=== PATIENT | male | born 1940 ===

== ENCOUNTER 2023-08-20 12:51 | Inpatient (IN) ==
[2023-08-20] MEDS: Propofol 10 mg/ml 100 ML BTL 1,000 MG/100 ML BTL IV SCH (14:15)
[2023-08-20] MEDS ORDERED: Sulfur Hexaflouride MICROSPHR 25 MG VIAL ONE (14:48)
[2023-08-20 15:02] LABS: ABS Lymphocytes 0.5 10^3/uL (1.0-4.8); ABS Monocytes 1.2 10^3/uL (0.0-1.1); ABS Neutrophils 15.5 10^3/uL (1.5-7.6); Hematocrit 33.9 % (38-53); Mean Corpuscular Hemoglobin 28.9 pg (27-33); Mean Corpuscular Hgb Conc 32.4 g/dL (31-36); Mean Platelet Volume 9.4 fL (7.5-11.2); Platelet Count 202 10^3/uL (150-450); Red Cell Distribution Width 16.8 % (12-17); White Blood Count 17.3 10^3/uL (3.6-10.2)
[2023-08-20] MEDS: Propofol 10 mg/ml 100 ML BTL 1,000 MG/100 ML BTL ONE (15:17)
[2023-08-20 15:23] LABS: ALT 11 U/L (7-52); AST 20 U/L (13-39); Albumin 3.6 g/dL (3.2-5.2); Albumin/Globulin Ratio 1.7 (1-3); Alkaline Phosphatase 71 U/L (35-149); Anion Gap 13 mmol/L (2-16); Blood Urea Nitrogen 16 mg/dL (6-24); CO2 Carbon Dioxide 25 mmol/L (22-32); Calcium 8.7 mg/dL (8.6-10.3); Chloride 103 mmol/L (101-111); Creatinine, Serum 1.11 mg/dL (0.67-1.17); Globulin 2.1 g/dL (2-4); Glucose 201 mg/dL (70-100); Magnesium 1.6 mg/dL (1.9-2.7); Potassium 2.7 mmol/L (3.5-5.0); Sodium 141 mmol/L (135-145); Total Bilirubin 1.5 mg/dL (0.2-1.0); Total Protein 5.7 g/dL (6.4-8.9); eGFR CKD-EPI 66.3 (>60)
[2023-08-20] MEDS: Chlorhexidine MOUTHWASH 0.12% 15 ML UDC SWISH SPIT SCH (15:25)
[2023-08-20] MEDS: Pantoprazole VIAL 40 MG VIAL IV SCH (15:25)
[2023-08-20] MEDS: Enoxaparin 40 MG/0.4 ML SYR SUBCUT SCH (15:25)
[2023-08-20 15:26] LABS: High Sens Troponin Baseline 77 pg/mL (<20)
[2023-08-20] MEDS: KCL 20 MEQ/100 ML IVPREMIX 20 MEQ/100 ML BAG IV SCH (16:05)
[2023-08-20 16:07] LABS: TSH Ultra Thyroid Stim Horm 0.51 mcIU/mL (0.34-5.60)
[2023-08-20 16:11] LABS: Acetaminophen < 15 mcg/mL; Alcohol, S < 13 mg/dL (<13); Salicylate < 2.50 mg/dL (<30)
[2023-08-20 16:23] LABS: Urine Benzodiazepine Screen Presumptive Positive (None Detect); Urine Cannabinoids Screen None Detected (None Detect); Urine Opiates Screen None Detected (None Detect)
[2023-08-20] MEDS ORDERED: Vancomycin 1,000 MG in NS 0.9% 250 ml 250 ML IVPB ONE (16:26)
[2023-08-20 16:35] LABS: High Sensitivity Troponin 1 Hr 98 pg/mL (<20)
[2023-08-20] MEDS ORDERED: Zosyn per Pharmacy NOTE FOLLOW UP SCH (17:00)
[2023-08-20] MEDS ORDERED: Vancomycin per Pharmacy 1 EA NOTE FOLLOW UP SCH (17:00)
[2023-08-20] MEDS: Magnesium Sulf 4 GM/100 ML IV 4,000 MG/100 ML BAG IVPB ONE (18:14)
[2023-08-20] MEDS: Iodixanol (CONTRAST) 320 MG/ML 100 ML SDV IV ONE (18:14)
[2023-08-20] MEDS: Vancomycin 1,500 MG in NS 0.9% 250 ml 250 ML IVPB ONE (18:34)
[2023-08-20] MEDS: Piperacillin/Tazobac 3.375 BAG 3.375 GM/100 ML BAG IV ONE (18:36)
[2023-08-20] MEDS: Iodixanol 320 (CONTRAST) 100 ML SDV IV ONE (18:40)
[2023-08-20 18:48] LABS: Urine Appearance Clear; Urine Bilirubin Negative (Negative); Urine Blood 2+ (Negative); Urine Color Straw; Urine Glucose Negative (Negative); Urine Ketones Negative (Negative); Urine Nitrite Negative (Negative); Urine Protein Negative (Negative); Urine Specific Gravity 1.024 (1.002-1.030); Urine Urobilinogen Negative (Negative)
[2023-08-20 19:10] LABS: Anion Gap 7 mmol/L (2-16); Blood Urea Nitrogen 15 mg/dL (6-24); CO2 Carbon Dioxide 29 mmol/L (22-32); Calcium 8.8 mg/dL (8.6-10.3); Chloride 101 mmol/L (101-111); Creatinine, Serum 1.02 mg/dL (0.67-1.17); Glucose 147 mg/dL (70-100); Sodium 137 mmol/L (135-145); eGFR CKD-EPI 73.4 (>60)
[2023-08-20 19:10] LABS: Urine Bacteria 1+ (Absent); Urine Red Blood Cell 3+(>10/hpf) (Absent); Urine White Blood Cell Absent (Absent)
[2023-08-20] MEDS: ZOSYN 3.375 GM Q8H per EXTENDED INFUSION IV SCH (21:31)
[2023-08-20] MEDS: fentaNYL INFUSION 50 mcg/mL VL 2,500 MCG/50 ML VIAL IV SCH (23:30)
[2023-08-21] MEDS: Midazolam 2 mg/2 ml VIAL 1 mg/ml 2 ml VIAL (2 mg) IV SLOW PU ONE (04:44)
[2023-08-21] MEDS: Vancomycin 1000 MG in NS 0.9% 250 ML IVPB SCH (05:33)
[2023-08-21] MEDS: Acetylcysteine INHALATION SOL 200 MG/ML NEB.SOLN 10 ML INH SCH ×3 (06:08→12:06)
[2023-08-21] MEDS: Albuterol 2.5mg/3 ml (0.083%) NEB.SOLN INH SCH ×2 (06:08→07:00)
[2023-08-21 06:54] LABS: ABS Neutrophils 14.9 10^3/uL (1.5-7.6); Hematocrit 34.5 % (38-53); Hemoglobin 11.5 g/dL (13.2-16.3); Mean Corpuscular Hemoglobin 29.2 pg (27-33); Mean Corpuscular Hgb Conc 33.3 g/dL (31-36); Mean Corpuscular Volume 87.7 fL (80-97); Mean Platelet Volume 9.6 fL (7.5-11.2); Platelet Count 190 10^3/uL (150-450); Red Blood Count 3.94 10^6/uL (4.06-5.63); Red Cell Distribution Width 17.2 % (12-17); White Blood Count 16.9 10^3/uL (3.6-10.2)
[2023-08-21 07:08] LABS: Calcium 8.3 mg/dL (8.6-10.3); Creatinine, Serum 0.92 mg/dL (0.67-1.17); Magnesium 2.2 mg/dL (1.9-2.7); Potassium 3.6 mmol/L (3.5-5.0); eGFR CKD-EPI 83.1 (>60)
[2023-08-21] MEDS: Dexamethasone IV 4 MG/ML VIAL 1 ml VIAL IV SLOW PU SCH (11:07)
[2023-08-21] MEDS: fentaNYL INFUSION 50 mcg/mL VL 2,500 MCG/50 ML VIAL IV SCH (11:07)
[2023-08-21] MEDS: Lactated Ringers 1000 ml BAG 500 ML IV ONE (13:53)
[2023-08-21] MEDS: Midazolam 5 mg/5 ml VIAL 1 mg/ml 5 ml VIAL (5 mg) IV SLOW PU PRN (22:55)
[2023-08-21] MEDS ORDERED: fentaNYL 100 mcg/2 ml 50 MCG/ML VIAL IV SLOW PU PRN (22:57)
[2023-08-21] MEDS: Gadoteridol (CONTRAST) 279.3 MG/ML 10 ML IV ONE (23:22)
[2023-08-22 05:37] LABS: ABS Lymphocytes 0.5 10^3/uL (1.0-4.8); ABS Monocytes 1.5 10^3/uL (0.0-1.1); ABS Neutrophils 18.1 10^3/uL (1.5-7.6); Hematocrit 32.5 % (38-53); Hemoglobin 10.9 g/dL (13.2-16.3); Lymphocyte % 2.5 %; Mean Corpuscular Hemoglobin 29.5 pg (27-33); Mean Corpuscular Hgb Conc 33.6 g/dL (31-36); Mean Corpuscular Volume 87.8 fL (80-97); Mean Platelet Volume 9.7 fL (7.5-11.2); Platelet Count 216 10^3/uL (150-450); Red Blood Count 3.71 10^6/uL (4.06-5.63); Red Cell Distribution Width 17.5 % (12-17); White Blood Count 20.1 10^3/uL (3.6-10.2)
[2023-08-22 05:54] LABS: Calcium 8.5 mg/dL (8.6-10.3); Creatinine, Serum 1.46 mg/dL (0.67-1.17); Magnesium 2.2 mg/dL (1.9-2.7); Potassium 2.9 mmol/L (3.5-5.0); eGFR CKD-EPI 47.7 (>60)
[2023-08-22] MEDS: Vancomycin Trough Check NOTE FOLLOW UP ONE (06:06)
[2023-08-22] MEDS ORDERED: Acetylcysteine INHALATION SOL 200 MG/ML NEB.SOLN 10 ML INH PRN (06:39)
[2023-08-22] MEDS: Albuterol 2.5mg/3 ml (0.083%) NEB.SOLN INH SCH (07:08)
[2023-08-22] MEDS: Dexmedetomidine 1,000 MCG in NS 0.9% 250 ml 240 ML IV SCH (07:30)
[2023-08-22] MEDS: KCL 20 MEQ/100 ML IVPREMIX 20 MEQ/100 ML BAG IV SCH (07:31)
[2023-08-22] MEDS: Potassium Chloride LIQUID 20 MEQ/15 ML LIQUID PO ONE (07:31)
[2023-08-22] MEDS: Lactated Ringers 1000 ml BAG 500 ML IV ONE (15:31)
[2023-08-22 22:08] LABS: Anion Gap 8 mmol/L (2-16); Blood Urea Nitrogen 23 mg/dL (6-24); CO2 Carbon Dioxide 27 mmol/L (22-32); Calcium 8.3 mg/dL (8.6-10.3); Chloride 105 mmol/L (101-111); Creatinine, Serum 1.29 mg/dL (0.67-1.17); Glucose 142 mg/dL (70-100); Magnesium 2.3 mg/dL (1.9-2.7); Sodium 140 mmol/L (135-145); eGFR CKD-EPI 55.4 (>60)
[2023-08-23] MEDS: KCL 20 MEQ/100 ML IVPREMIX 20 MEQ/100 ML BAG IV SCH (02:57)
[2023-08-23] MEDS: Potassium Chloride LIQUID 20 MEQ/15 ML LIQUID PO ONE (02:57)
[2023-08-23 04:41] LABS: ABS Lymphocytes 0.4 10^3/uL (1.0-4.8); ABS Monocytes 0.6 10^3/uL (0.0-1.1); ABS Neutrophils 13.1 10^3/uL (1.5-7.6); ABS Nucleated RBC 0.01 10^3/ul; Hematocrit 33.8 % (38-53); Hemoglobin 11.3 g/dL (13.2-16.3); Lymphocyte % 2.7 %; Mean Corpuscular Hemoglobin 29.5 pg (27-33); Mean Corpuscular Hgb Conc 33.4 g/dL (31-36); Mean Corpuscular Volume 88.3 fL (80-97); Mean Platelet Volume 9.8 fL (7.5-11.2); Platelet Count 187 10^3/uL (150-450); Red Blood Count 3.83 10^6/uL (4.06-5.63); Red Cell Distribution Width 17.8 % (12-17); White Blood Count 14.1 10^3/uL (3.6-10.2)
[2023-08-23 04:58] LABS: Calcium 8.3 mg/dL (8.6-10.3); Creatinine, Serum 1.22 mg/dL (0.67-1.17); Magnesium 2.2 mg/dL (1.9-2.7); Potassium 3.8 mmol/L (3.5-5.0); eGFR CKD-EPI 59.2 (>60)
[2023-08-23] MEDS: fentaNYL 100 mcg/2 ml 50 MCG/ML VIAL IV SLOW PU PRN (05:16)
[2023-08-23] MEDS: Vancomycin 1,250 MG in NS 0.9% 250 ml 250 ML IVPB SCH (07:47)
[2023-08-23] MEDS ORDERED: Lorazepam PYXIS KEY PRN (16:18)
[2023-08-23] MEDS: LORazepam 2 mg VIAL 1 ml IV PUSH ONE (16:27)
[2023-08-24] MEDS: Midazolam 2 mg/2 ml VIAL 1 mg/ml 2 ml VIAL (2 mg) IV SLOW PU PRN (04:01)
[2023-08-24 04:29] LABS: ABS Lymphocytes 1.1 10^3/uL (1.0-4.8); ABS Monocytes 1.4 10^3/uL (0.0-1.1); ABS Neutrophils 16.5 10^3/uL (1.5-7.6); ABS Nucleated RBC 0.01 10^3/ul; Hematocrit 36.9 % (38-53); Hemoglobin 12.3 g/dL (13.2-16.3); Lymphocyte % 5.7 %; Mean Corpuscular Hemoglobin 29.4 pg (27-33); Mean Corpuscular Hgb Conc 33.4 g/dL (31-36); Mean Corpuscular Volume 88.2 fL (80-97); Platelet Count 230 10^3/uL (150-450); Red Blood Count 4.18 10^6/uL (4.06-5.63); Red Cell Distribution Width 17.7 % (12-17)
[2023-08-24 04:41] LABS: Calcium 8.1 mg/dL (8.6-10.3); Creatinine, Serum 1.11 mg/dL (0.67-1.17); Magnesium 2.1 mg/dL (1.9-2.7); Potassium 4.7 mmol/L (3.5-5.0); eGFR CKD-EPI 66.3 (>60)
[2023-08-24 04:48] LABS: Urine Appearance Cloudy; Urine Bilirubin Negative (Negative); Urine Blood 3+ (Negative); Urine Color Yellow; Urine Glucose Negative (Negative); Urine Ketones Negative (Negative); Urine Nitrite Negative (Negative); Urine Protein 1+(30 mg/dL) (Negative); Urine Specific Gravity 1.016 (1.002-1.030); Urine Urobilinogen Negative (Negative)
[2023-08-24 04:59] LABS: Urine Bacteria Absent (Absent); Urine Red Blood Cell 3+(>10/hpf) (Absent); Urine White Blood Cell 3+(>20/hpf) (Absent)
[2023-08-24] MEDS: Lactulose 30 ml UDC NG TUBE ONE (12:32)
[2023-08-24] MEDS: Enoxaparin 100 MG/ML SYR SUBCUT SCH (12:37)
[2023-08-24] MEDS: Metoprolol Tartrate 5 mg VIAL 5 ml VIAL (1 mg/ml) IV PRN (18:18)
[2023-08-24] MEDS: Labetalol IV 5 MG/ML 20 ml VIAL IV PUSH PRN (21:01)
[2023-08-24] MEDS: Iohexol 350 (CONTRAST) 500 ML MDV IV ONE (21:11)
[2023-08-25] MEDS: Acetaminophen IV 1 GM/100ML 1,000 MG/100 ML BAG IV PRN (04:17)
[2023-08-25 04:22] LABS: Hemoglobin 13.3 g/dL (13.2-16.3); Mean Corpuscular Hemoglobin 29.2 pg (27-33); Mean Corpuscular Hgb Conc 33.3 g/dL (31-36); Mean Corpuscular Volume 87.6 fL (80-97); Mean Platelet Volume 9.5 fL (7.5-11.2); Platelet Count 276 10^3/uL (150-450); Red Blood Count 4.56 10^6/uL (4.06-5.63); Red Cell Distribution Width 17.6 % (12-17); White Blood Count 17.8 10^3/uL (3.6-10.2)
[2023-08-25 04:52] LABS: ABS Basophils 0.1 10^3/uL (0.0-0.1); ABS Lymphocytes 1.7 10^3/uL (1.0-4.8); ABS Monocytes 1.5 10^3/uL (0.0-1.1); ABS Neutrophils 14.5 10^3/uL (1.5-7.6); ABS Nucleated RBC 0.01 10^3/ul; Lymphocyte % 9.8 %; Nucleated Red Blood Cells % 0.1 %/100WBC (0.0-0.8)
[2023-08-25 05:38] LABS: Calcium 8.5 mg/dL (8.6-10.3); Creatinine, Serum 0.98 mg/dL (0.67-1.17); Magnesium 1.9 mg/dL (1.9-2.7); Potassium 4.4 mmol/L (3.5-5.0)
[2023-08-25] MEDS: Magnesium Sulfate 2 gm BAG 2 GM/50 ML BAG IVPB ONE (08:27)
[2023-08-25] MEDS: Vancomycin Trough Check NOTE FOLLOW UP ONE (08:28)
[2023-08-25] MEDS ORDERED: Enoxaparin 40 MG/0.4 ML SYR SUBCUT SCH (21:00)
[2023-08-25 22:01] LABS: PCO2 Arterial 35 mmHg (35-45)
[2023-08-25] MEDS: Sodium Chloride(INHALANT) 7% 4 ML NEB.SOLN INH ONE (22:10)
[2023-08-25] MEDS: hydrALAZINE 20 mg/ml 1 ML Vial IV IV SLOW PU PRN (22:27)
[2023-08-25] MEDS: hydrALAZINE 20 mg/ml 1 ML Vial IV ONE (22:35)
[2023-08-26] MEDS ORDERED: Lorazepam PYXIS KEY PRN (00:29)
[2023-08-26] MEDS: LORazepam 2 mg VIAL 1 ml IV PUSH ONE (03:10)
[2023-08-26 04:24] LABS: Hematocrit 40.5 % (38-53); Hemoglobin 13.6 g/dL (13.2-16.3); Mean Corpuscular Hemoglobin 29.5 pg (27-33); Mean Corpuscular Hgb Conc 33.5 g/dL (31-36); Mean Platelet Volume 9.5 fL (7.5-11.2); Platelet Count 299 10^3/uL (150-450); Red Cell Distribution Width 17.3 % (12-17)
[2023-08-26 05:07] LABS: Calcium 8.6 mg/dL (8.6-10.3); Creatinine, Serum 1.17 mg/dL (0.67-1.17); Magnesium 2.4 mg/dL (1.9-2.7); eGFR CKD-EPI 62.2 (>60)
[2023-08-26 05:39] LABS: ABS Lymphocytes 1.5 10^3/uL (1.0-4.8); ABS Monocytes 2.5 10^3/uL (0.0-1.1); ABS Nucleated RBC 0.03 10^3/ul; Acanthocytes 2+; Anisocytosis 1+; Lymphocyte % 7.5 %; Nucleated Red Blood Cells % 0.1 %/100WBC (0.0-0.8)
[2023-08-26] MEDS: Enoxaparin 80 MG/0.8 ML SYR SUBCUT SCH (12:46)
[2023-08-26] MEDS ORDERED: Albuterol 2.5mg/3 ml (0.083%) NEB.SOLN INH PRN (13:07)
[2023-08-27] MEDS: Lactated Ringers 1000 ml BAG 500 ML IV ONE ×2 (03:30→10:20)
[2023-08-27 04:25] LABS: Hematocrit 39.8 % (38-53); Mean Corpuscular Hemoglobin 28.9 pg (27-33); Mean Corpuscular Hgb Conc 32.8 g/dL (31-36); Mean Corpuscular Volume 88.2 fL (80-97); Mean Platelet Volume 9.5 fL (7.5-11.2); Platelet Count 307 10^3/uL (150-450); Red Blood Count 4.51 10^6/uL (4.06-5.63); Red Cell Distribution Width 17.7 % (12-17); White Blood Count 20.4 10^3/uL (3.6-10.2)
[2023-08-27 04:41] LABS: ABS Basophils 0.1 10^3/uL (0.0-0.1); ABS Eosinophils 0.1 10^3/uL (0.0-0.5); ABS Lymphocytes 2.3 10^3/uL (1.0-4.8); ABS Monocytes 2.2 10^3/uL (0.0-1.1); ABS Neutrophils 15.7 10^3/uL (1.5-7.6); ABS Nucleated RBC 0.02 10^3/ul; Eosinophil % 0.3 %; Lymphocyte % 11.4 %; Nucleated Red Blood Cells % 0.1 %/100WBC (0.0-0.8)
[2023-08-27 05:29] LABS: Anion Gap 12 mmol/L (2-16); Blood Urea Nitrogen 45 mg/dL (6-24); C Reactive Protein 22.54 mg/L (<8.01); CO2 Carbon Dioxide 27 mmol/L (22-32); Calcium 8.4 mg/dL (8.6-10.3); Chloride 103 mmol/L (101-111); Creatinine, Serum 1.47 mg/dL (0.67-1.17); Glucose 90 mg/dL (70-100); Magnesium 2.6 mg/dL (1.9-2.7); Sodium 142 mmol/L (135-145); eGFR CKD-EPI 47.3 (>60)
[2023-08-27] MEDS: KCL 20 MEQ/100 ML IVPREMIX 20 MEQ/100 ML BAG IV SCH (10:18)
[2023-08-28 04:25] LABS: Venous Bicarbonate HCO3 27.3 mmol/L (24-28)
[2023-08-28 04:29] LABS: Hematocrit 38.5 % (38-53); Hemoglobin 12.8 g/dL (13.2-16.3); Mean Corpuscular Hemoglobin 29.4 pg (27-33); Mean Corpuscular Hgb Conc 33.2 g/dL (31-36); Mean Corpuscular Volume 88.5 fL (80-97); Mean Platelet Volume 9.1 fL (7.5-11.2); Platelet Count 286 10^3/uL (150-450); Red Blood Count 4.35 10^6/uL (4.06-5.63); Red Cell Distribution Width 17.6 % (12-17); White Blood Count 19.7 10^3/uL (3.6-10.2)
[2023-08-28 04:31] LABS: Platelet Count 281 10^3/ul (150-450)
[2023-08-28 04:45] LABS: Calcium 8.5 mg/dL (8.6-10.3); Creatinine, Serum 1.25 mg/dL (0.67-1.17); Magnesium 2.6 mg/dL (1.9-2.7); eGFR CKD-EPI 57.5 (>60)
[2023-08-28 05:25] LABS: Activated Partial Thrombo Time 32.5 seconds (26.0-38.0); INR 1.16 (0.83-1.13)
[2023-08-28 06:10] LABS: Schistocytes ABSENT
[2023-08-28 06:48] LABS: ABS Basophils 0.1 10^3/uL (0.0-0.1); ABS Lymphocytes 2.1 10^3/uL (1.0-4.8); ABS Monocytes 1.8 10^3/uL (0.0-1.1); ABS Neutrophils 15.7 10^3/uL (1.5-7.6); ABS Nucleated RBC 0.01 10^3/ul; Acanthocytes 1+; Anisocytosis 1+; Lymphocyte % 10.8 %
[2023-08-29 04:54] LABS: Hematocrit 37.1 % (38-53); Mean Corpuscular Hemoglobin 28.9 pg (27-33); Mean Corpuscular Hgb Conc 32.4 g/dL (31-36); Mean Corpuscular Volume 89.2 fL (80-97); Mean Platelet Volume 9.2 fL (7.5-11.2); Platelet Count 264 10^3/uL (150-450); Red Blood Count 4.16 10^6/uL (4.06-5.63); White Blood Count 18.1 10^3/uL (3.6-10.2)
[2023-08-29 05:10] LABS: Calcium 8.5 mg/dL (8.6-10.3); Creatinine, Serum 1.24 mg/dL (0.67-1.17); Magnesium 2.7 mg/dL (1.9-2.7); Potassium 3.9 mmol/L (3.5-5.0)
[2023-08-29 05:25] LABS: ABS Basophils 0.1 10^3/uL (0.0-0.1); ABS Lymphocytes 1.9 10^3/uL (1.0-4.8); ABS Monocytes 1.6 10^3/uL (0.0-1.1); ABS Neutrophils 14.5 10^3/uL (1.5-7.6); ABS Nucleated RBC 0.01 10^3/ul; Anisocytosis 3+; Lymphocyte % 10.5 %; Nucleated Red Blood Cells % 0.1 %/100WBC (0.0-0.8)
[2023-08-29] MEDS: KCL 20 MEQ/100 ML IVPREMIX 20 MEQ/100 ML BAG IV ONE (09:37)
[2023-08-29] MEDS: Pantoprazole VIAL 40 MG VIAL IV SCH (17:16)
[2023-08-30 05:40] LABS: Hematocrit 35.2 % (38-53); Hemoglobin 11.4 g/dL (13.2-16.3); Mean Corpuscular Hgb Conc 32.5 g/dL (31-36); Mean Corpuscular Volume 89.4 fL (80-97); Mean Platelet Volume 9.6 fL (7.5-11.2); Platelet Count 262 10^3/uL (150-450); Red Blood Count 3.94 10^6/uL (4.06-5.63); Red Cell Distribution Width 17.8 % (12-17); White Blood Count 21.1 10^3/uL (3.6-10.2)
[2023-08-30 05:55] LABS: Calcium 8.5 mg/dL (8.6-10.3); Creatinine, Serum 1.29 mg/dL (0.67-1.17); Potassium 4.1 mmol/L (3.5-5.0); eGFR CKD-EPI 55.4 (>60)
[2023-08-30 08:13] LABS: ABS Basophils 0.1 10^3/uL (0.0-0.1); ABS Lymphocytes 2.9 10^3/uL (1.0-4.8); ABS Monocytes 1.7 10^3/uL (0.0-1.1); ABS Neutrophils 16.3 10^3/uL (1.5-7.6); ABS Nucleated RBC 0.01 10^3/ul; Acanthocytes 1+; Anisocytosis 1+; Hypochromasia 1+; Lymphocyte % 13.7 %
[2023-08-30 13:46] VITALS: BP 144/97
== END 2023-08-30 16:07 | disposition expired | DRG 208 ==
LOC: ICU 13:42
PROVIDERS: ADMIT Student in an Organized Health Care Education/Training Program; ATTEND Student in an Organized Health Care Education/Training Program